=== PATIENT | female | born 1960 ===

== ENCOUNTER 2017-08-28 02:00 | Inpatient (IN) | payer OTHER ==
--- NOTE | 2017-08-17 15:08 | HISTORY AND PHYSICAL ---
DATE OF ADMISSION: August 28, 2017 IDENTIFICATION/CHIEF COMPLAINT Michaela is a 56-year-old woman with the chief complaint of right knee pain. HISTORY OF PRESENT ILLNESS Patient has a long-standing history of knee arthritis, progressively painful and debilitating, and refractory to conservative care. Surgery is indicated to relieve symptoms after the failure of nonoperative measures. PAST MEDICAL HISTORY Remote history of pneumonia in 2009. PAST SURGICAL HISTORY Appendectomy. ALLERGIES She has no known drug allergies. CURRENT MEDICATIONS She takes only vitamins. SOCIAL HISTORY Negative for tobacco and alcohol use. FAMILY HISTORY Notable for a mother who from a blood clot. REVIEW OF SYSTEMS Notable for amyloidosis. PHYSICAL EXAMINATION GENERAL: This is a healthy female. She appears her stated age. HEENT: Normocephalic, atraumatic. NECK: Supple. LUNGS: Clear. HEART: Regular. ABDOMEN: Soft. ORTHOPEDIC EXAM: The right knee has an effusion present. She has crepitus noted. Gross stability is good. Ligament exam is normal. She is stiff at the end range. Skin is intact. Neurovascular function is intact. Calves nontender. IMAGING Radiographs demonstrated advanced DJD. ASSESSMENT Right knee degenerative joint disease refractory to conservative care. PLAN Per patient request we are going to proceed with total knee replacement. The nature of the procedure, risks, benefits, the anticipated rehab course were reviewed. The risks include, but are not limited to , major medical or anesthetic complication, infection, neurovascular injury, blood transfusion, stiffness, scarring, fracture, tendon rupture, instability, implant loosening, migration or failure, persistent or recurrent pain, need for additional surgery and other unforeseen. She understands and wishes to proceed. A signed permit was placed in the chart. No guarantees are given or implied. RUTH
[2017-08-27 14:29] LABS: INR 0.98
[~2017-08-28] VITALS: Ht 160 cm; Wt 98.9 kg
[2017-08-28] VITALS (14 sets, daily range): BP systolic 89–131; BP diastolic 48–79
[~2017-08-28 02:00] MED LIST: IBUP200C74 PO; MULT-989 PO; RUTI1TAB3 PO
[2017-08-28] MEDS ORDERED: METOCLOPRAMIDE 10 MG/2 ML SDV ONE (07:59)
[2017-08-28] MEDS ORDERED: PROPOFOL EMUL(*) 10MG/ML 20 ML 20 ML ONE (07:59)
[2017-08-28] MEDS ORDERED: ONDANSETRON 4 MG/2 ML VIAL ONE (07:59)
[2017-08-28] MEDS ORDERED: LIDOCAINE MPF 1% 5 ML VIAL ONE (07:59)
[2017-08-28] MEDS ORDERED: PREGABALIN 150 MG CAPSULE PO ONE (08:00)
[2017-08-28] MEDS ORDERED: cloNIDine EPIDUR INJ 100MCG/ML 40 MCG, ROPIVACAINE 0.5% 20 ML VIAL 25 ML, EPINEPHrine H... INJ ONE (08:00)
[2017-08-28] MEDS ORDERED: LIDOCAINE/SOD BICARB 8.4% SYR ID ONE (08:00)
[2017-08-28] MEDS ORDERED: DEXAMETHASONE SOD 4 MG/ML VIAL ONE (08:00)
[2017-08-28] MEDS ORDERED: TRANEXAMIC AC 1000 MG/10ML SDV 1,000 MG in DEXTROSE 5% 50 ML BAG 50 ML IV ONE (08:00)
[2017-08-28] MEDS ORDERED: FAMOTIDINE 20 MG TAB PO ONE (08:00)
[2017-08-28] MEDS ORDERED: ceFAZolin(*) 2GM/D5W 50ML 50 ML IVPB ONE (08:00)
[2017-08-28] MEDS ORDERED: CELECOXIB 200 MG CAP PO ONE (08:00)
[2017-08-28] MEDS ORDERED: MIDAZOLAM 2 MG/2 ML VIAL IVP PRN ×2 (08:00)
[2017-08-28] MEDS ORDERED: NORMOSOL R SOLN(*) 1000 ML BAG 1,000 ML IV PRN ×2 (08:00→11:25)
[2017-08-28] MEDS ORDERED: ACETAMINOPHEN 500 MG TAB PO ONE (08:00)
[2017-08-28] MEDS ORDERED: fentaNYL CITR 100 MCG/2 ML AMP ONE (08:40)
[2017-08-28] MEDS ORDERED: ePHEDrine 25 MG/5 ML DISP.SYR IVP ONE (09:02)
[2017-08-28] MEDS ORDERED: NS(*) 0.9% 250 ML BAG 250 ML ONE (09:26)
[2017-08-28] MEDS ORDERED: PHENYLEPHRINE 10 MG/1 ML VIAL ONE (09:26)
[2017-08-28] MEDS ORDERED: GLYCOPYRROLATE 0.2MG/ML 1 ML INJ ONE (09:31)
[2017-08-28] MEDS ORDERED: LACTATED RINGER 3000 ML BAG IR ONE (10:29)
[2017-08-28] MEDS ORDERED: ZOLPIDEM TARTRATE 5 MG TAB PO PRN (11:25)
[2017-08-28] MEDS ORDERED: DIAZEPAM 5 MG TAB PO PRN (11:25)
[2017-08-28] MEDS ORDERED: BISACODYL 10 MG SUPP PR PRN (11:25)
[2017-08-28] MEDS ORDERED: BENZOCAINE/MENTHOL 1 EACH LOZG PO PRN (11:25)
[2017-08-28] MEDS ORDERED: diphenhydrAMINE 25 MG CAP PO PRN (11:25)
[2017-08-28] MEDS ORDERED: ACETAMINOPHEN 325 MG TAB PO PRN (11:25)
[2017-08-28] MEDS ORDERED: FLUSH 10 ML SYR IVP PRN (11:25)
[2017-08-28] MEDS ORDERED: MAGNESIUM HYDROXIDE* 30ML UDCP PO PRN (11:25)
[2017-08-28] MEDS ORDERED: PROMETHAZINE 25 MG/ML 1 ML AMP IVP PRN (11:25)
[2017-08-28] MEDS ORDERED: diphenhydrAMINE 50 MG/ML VIAL IVP PRN (11:25)
--- NOTE | 2017-08-28 12:30 | RADIOLOGY IMAGING REPORT ---
FACILITY: [facility] PATIENT NAME: Michaela Farley : 1960 MR: [id number] V: [id number] EXAM DATE: ORDERING PHYSICIAN: TODD TURPIN TECHNOLOGIST: Location: [facility] Patient: Michaela Farley : 1960 Visit/Account:[id number] Date of Sevice: 08/28/2017 KNEE LIMITED RIGHT COMPARISONS: None. ADDITIONAL PERTINENT HISTORY: Status post total knee arthroplasty. FINDINGS: Osseous structures: Patient status post right knee arthroplasty. No bony fractures. Joint spaces: Air within the suprapatellar joint space. Components of the arthroplasty in good positi on. Surrounding soft tissues: Subcutaneous emphysema about the right knee. IMPRESSION: 1. Patient status post total right knee arthroplasty. 2. No acute appearing bony abnormalities. Report Dictated By: JuanF Wren MD at 08/28/2017 12:22 PM Report E-Signed By: Juan F Wren MD at 08/28/2017 12:25 PM WSN:[id number]
--- NOTE | 2017-08-28 14:08 | Hospitalist Consultation ---
History of Present Illness Requesting Physician Dr. Low Reason for Consult Medical Management Chief Complaint s/p right total knee replacement History of Present Illness She was admitted s/p right total knee replacement. It was reported the surgery went well and without complication. History Problems: (1) Amyloidosis Status: Chronic Home Meds Reported Medications Ibuprofen (ADVIL) 200 Mg Capsule, 2 CAP PO HS, CAPSULE 08/20/17 Rutin/Hesp/Bioflav/C/Herb#196 (BIOFLEX TABLET) 1 Each Tablet, 1 TAB PO DAILY 08/20/17 Multivitamins-Min/Fa/Ginkgo (ONE DAILY FOR WOMEN 50+ ADV TB) 1 Each Tablet, 1 TAB PO DAILY 08/20/17 Allergies: Coded Allergies: No Known Drug Allergies (Unverified , 08/20/17) Patient History: DVT MOTHER, FH: [place] (myocardial infarction) FATHER, Hx Smoking: No Smoking Status: Never Smoker Caffeine Intake: Tea Caffeine/Cups Per Day: 2 GLASSES Hx Alcohol Use: No Hx Substance Use Disorder: No Social Drug Use: Never History of IV Drug Use: No Review of Systems All Systems Reviewed/Normal: Yes, Except as Noted Exam Vital Signs Vital Signs Date Time Temp Pulse Resp B/P (MAP) Pulse Ox O2 Delivery O2 Flow Rate FiO2 08/28/17 12:30 57 20 95 08/28/17 12:30 97.5 118/59 (78) Nasal Cannula 2.0 General Appearance: Alert, Awake, No Acute Distress, Afebrile Neuro: No Gross deficits Cardiovascular: Regular Rate and Rhythm Respiratory: No Respiratory Distress, Clear to Auscultation GI: Abd Soft and Non-Tender Psych: Alert & Oriented X3, Appropriate Mood & Affect Assessment and Plan Problems: (1) Status post total right knee replacement Status: Acute Assessment & Plan: Followed by Dr. Low. She will be placed on Xarelto for DVT prophylaxis. (2) Amyloidosis Status: Chronic Assessment & Plan: Followed by Neurology in [place], [place]. She does not require any treatment at this time. Venous Thromboembolism Antithrombotics Is Pt On Any Antithrombotics?: Yes RIA LITTLEJOHN [employer] August 28, 2017 14:07
[2017-08-28] MEDS: APAP/HYDROCODONE 325/7.5 TAB PO PRN ×2 (14:15→20:46)
[2017-08-28] MEDS: CEFAZOLIN PREM 1 GM/D5W 50 ML 50 ML IVPB SCH (16:19)
[2017-08-28] MEDS: CELECOXIB 200 MG CAP PO SCH (16:19)
--- NOTE | 2017-08-28 21:36 | OPERATIVE REPORT 1 ---
EVENT DATE: August 28, 2017 SURGEON: Tariq Low MD ANESTHESIOLOGIST: Moris Morley MD ANESTHESIA: General plus spinal. PAROLE BOARD MEMBER: LIZ Andrade PREOPERATIVE DIAGNOSIS Right knee degenerative joint disease. POSTOPERATIVE DIAGNOSIS Right knee degenerative joint disease. PROCEDURE PERFORMED Right total knee arthroplasty. ESTIMATED BLOOD LOSS Minimal. DRAINS None. SPECIMENS None. COMPLICATIONS None apparent. IMPLANTS USED Driscoll Triathlon knee system with a 4 right PS femur, 4 standard tibial baseplate, 33 mm universal symmetric patellar button, and 11 mm PS tibial tray liner. Polyethylene is X3. TOURNIQUET TIME 64 minutes INDICATIONS Michaela has intractable pain related to end-stage knee arthritis. Surgery is indicated to relieve symptoms after failure of nonoperative measures. DESCRIPTION OF PROCEDURE Patient was taken to the operating room and placed supine on the operating table. General anesthesia was induced after a spinal block was placed by the anesthesiologist. Right lower extremity was prepped and draped in the usual sterile fashion for knee arthroplasty. Limb was exsanguinated with an Esmarch bandage. Tourniquet inflated to 300 mmHg. Midline incision made, carried down through the skin and subcutaneous tissue to the extensor mechanism. Medial parapatellar arthrotomy was performed. Patella was everted. Knee was brought into the flexed position. Fat pad, anterior horns of the menisci, and the cruciate ligaments are debrided. Subperiosteal medial released is performed to start the balance the knee in a titrated fashion. A step drill is used to enter the distal femur. A 10-inch long alignment guide is used to engage the isthmus, cut set for 6 degrees of valgus relative to the anatomic axis. The 10 mm resection block is applied, pinned, and cuts made with an oscillating saw. AP sizing guide is applied. Size 4 is optimal. Four-in-one cutting block is applied. Anterior, posterior, posterior chamfer, and anterior chamfer cuts are made respectively. PS block is applied and centered. Medial and lateral bone is removed from the box. Trial femur has nice fit. Attention is turned to tibial preparation. The extramedullary guide is applied, positioned for varus, valgus, posterior slope, and rotation. This is set to resect 9 mm from the relatively intact lateral tibial plateau. The block is pinned. Extramedullary alignment check is made. Cuts made with an oscillating saw. After osteophyte removal, no further releases are required to balance the knee. Gaps are balanced and rectangular. The 4 baseplate provides optimum bony coverage without soft tissue overhang. This is inserted along with the trial liner and the trial femur. Knee is brought to extension. Patella is taken from the starting thickness of 22 mm to a residual of 14 with a patellar clamp and oscillating saw. The 33 provides optimal coverage. Lug holes are drilled. Patella tracks nicely with the no-touch technique. Final tibial preparation consists of assuring appropriate rotational and translational positioning of the component. The boss is reamed. Fin is punched. Surfaces are lavaged. Bone block is placed in the terminal canal. Mixed methacrylate is made and components cemented in a single stage. Once the cement is fully polymerized, tourniquet is deflated. Hemostasis is assured. The 11 PS tibial tray liner fills up the gap ideally, allowing the knee to drop to full extension without hyperextension, providing optimal soft tissue tension and stability. The 11 PS liner is locked into the baseplate. Surfaces are lavaged. Hemostasis is assured. Arthrotomy is closed in flexion with #2 Ethibond, subcutaneous tissue with 3-0 Vicryl, skin with surgical david. Sterile dressing applied. Patient awakened from anesthesia and taken to the recovery room in stable condition having tolerated the procedure well. Plan is for standard TKA rehab protocol. [facility]
[2017-08-29] VITALS (17 sets, daily range): BP systolic 62–129; BP diastolic 39–73; Ht 160 cm; Wt 98.9 kg
[2017-08-29] MEDS: APAP/HYDROCODONE 325/7.5 TAB PO PRN ×4 (01:46→21:27)
[2017-08-29] MEDS: CEFAZOLIN PREM 1 GM/D5W 50 ML 50 ML IVPB SCH ×2 (01:46→08:11)
[2017-08-29] MEDS: CELECOXIB 200 MG CAP PO SCH ×2 (08:11→17:45)
[2017-08-29] MEDS: RIVAROXABAN 10 MG TAB PO SCH (08:11)
[2017-08-29] MEDS ORDERED: NS(*) 0.9% 1000 ML BAG 1,000 ML IV ONE (09:25)
--- NOTE | 2017-08-29 11:15 | Hospitalist Progress Note ---
Subjective Progress Notes Subjective She has low blood pressure this morning. She was noted to be dizzy upon standing this morning. Patient Complains of: Neurological: Dizziness (upon standing) Cardiovascular: No: Chest Pain Respiratory: No: Shortness of Breath Physical Exam Vital Signs Date Time Temp Pulse Resp B/P (MAP) Pulse Ox O2 Delivery O2 Flow Rate FiO2 08/29/17 10:45 97.9 83 93/53 (66) 96 Nasal Cannula 3.0 08/29/17 06:59 16 Intake and Output 08/30/17 01:00 Intake Total 295 ml Balance 295 ml Intake Oral 240 ml IV Total 55 ml General Appearance: Alert, Awake, No Acute Distress, Afebrile Neuro: No Gross deficits Cardiovascular: Regular Rate and Rhythm Respiratory: No Respiratory Distress, Clear to Auscultation Extremities: Perfused, No Edema Psych: Alert & Oriented X3, Appropriate Mood & Affect Assessment and Plan Problems: (1) Status post total right knee replacement Status: Acute Assessment & Plan: Followed by Dr. Low. She will be placed on Xarelto for DVT prophylaxis. (2) Amyloidosis Status: Chronic Assessment & Plan: Followed by Neurology in [place], [place]. She does not require any treatment at this time. (3) Hypotension Status: Acute Assessment & Plan: She will receive IV bolus of Normal Saline. We will continue to monitor her blood pressure. Exam Sepsis Risk: No Definite Risk RIA LITTLEJOHN [employer]ING MECH[employer]IC August 29, 2017 11:15
[2017-08-29 11:40] LABS: PLATELET COUNT, AUTOMATED 176 K/uL (150-450)
[2017-08-30 05:09] VITALS: BP 107/56
[2017-08-30 07:15] VITALS: BP 118/57
[2017-08-30] MEDS: RIVAROXABAN 10 MG TAB PO SCH (08:19)
[2017-08-30] MEDS: CELECOXIB 200 MG CAP PO SCH ×2 (08:19→17:33)
--- NOTE | 2017-08-30 10:17 | Hospitalist Progress Note ---
Subjective Progress Notes Subjective She reports she feels much better today. She denies any dizziness. Patient Complains of: Neurological: No: Dizziness Cardiovascular: No: Chest Pain Respiratory: No: Shortness of Breath Physical Exam Vital Signs Date Time Temp Pulse Resp B/P (MAP) Pulse Ox O2 Delivery O2 Flow Rate FiO2 08/30/17 07:15 98.4 90 16 118/57 (77) 91 Room Air 08/30/17 05:09 1.0 Intake and Output 08/31/17 01:00 Intake Total 500 ml Balance 500 ml Intake Oral 500 ml # Voids 3 General Appearance: Alert, Awake, No Acute Distress, Afebrile Neuro: No Gross deficits Cardiovascular: Regular Rate and Rhythm Respiratory: No Respiratory Distress, Clear to Auscultation GI: Soft and Non-Tender Psych: Alert & Oriented X3, Appropriate Mood & Affect Result Diagram: 08/29/17 1130 08/29/17 1130 Assessment and Plan Problems: (1) Status post total right knee replacement Status: Acute Assessment & Plan: Followed by Dr. Low. She will be placed on Xarelto for DVT prophylaxis. (2) Amyloidosis Status: Chronic Assessment & Plan: Followed by Neurology in [place], [place]. She does not require any treatment at this time. (3) Hypotension Status: Resolved Assessment & Plan: She did receive IV bolus of Normal Saline. We will continue to monitor her blood pressure. Exam Sepsis Risk: No Definite Risk RIA LITTLEJOHNP August 30, 2017 10:17
[2017-08-30 11:42] VITALS: BP 122/60
[2017-08-30] MEDS: APAP/HYDROCODONE 325/7.5 TAB PO PRN ×2 (11:45→20:02)
[2017-08-30 15:10] VITALS: BP 116/59
[2017-08-30 19:56] VITALS: BP 122/64
[2017-08-31 03:51] VITALS: BP 132/68
[2017-08-31 07:26] VITALS: BP 144/89
[2017-08-31 07:59] VITALS: BP 125/70
[2017-08-31] MEDS: RIVAROXABAN 10 MG TAB PO SCH (08:33)
[2017-08-31] MEDS: CELECOXIB 200 MG CAP PO SCH (08:33)
[2017-08-31] MEDS ORDERED: HYDR-4308 PO (08:40)
[2017-08-31] MEDS ORDERED: RIVA10TA PO (09:23)
--- NOTE | 2017-08-31 10:46 | Hospitalist Progress Note ---
Subjective Progress Notes Subjective She has no concerns this morning. She had no acute events overnight. Patient Complains of: Cardiovascular: No: Chest Pain Respiratory: No: Shortness of Breath Physical Exam Vital Signs Date Time Temp Pulse Resp B/P (MAP) Pulse Ox O2 Delivery O2 Flow Rate FiO2 08/31/17 07:59 98.0 88 16 125/70 (88) 90 Room Air 08/30/17 20:01 1.0 Intake and Output 09/01/17 01:00 Intake Total 480 ml Balance 480 ml Intake Oral 480 ml # Voids 2 General Appearance: Alert, Awake, No Acute Distress, Afebrile Neuro: No Gross deficits Cardiovascular: Regular Rate and Rhythm Respiratory: No Respiratory Distress, Clear to Auscultation GI: Soft and Non-Tender Psych: Alert & Oriented X3, Appropriate Mood & Affect Result Diagram: 08/29/17 1130 08/29/17 1130 Assessment and Plan Problems: (1) Status post total right knee replacement Status: Acute Assessment & Plan: Followed by Dr. Low. She will continue Xarelto for DVT prophylaxis. She has the prescription already filled at home. (2) Amyloidosis Status: Chronic Assessment & Plan: Followed by Neurology in [place], [place]. She does not require any treatment at this time. (3) Hypotension Status: Resolved Assessment & Plan: She did receive IV bolus of Normal Saline. Resolved. Exam Sepsis Risk: No Definite Risk RIA LITTLEJOHN ELECTRICAL INSTALLER August 31, 2017 10:46
[2017-08-31] MEDS: APAP/HYDROCODONE 325/7.5 TAB PO PRN (10:56)
== END 2017-08-31 11:05 | disposition home or self-care (01) | DRG 470 ==
LOC: OR 02:00 → MED 12:30
PROVIDERS: ADMIT Orthopaedic Surgery; ATTEND Orthopaedic Surgery
PROC: 0SRC0J9 Replacement of Right Knee Joint with Synthetic Substitute, Cemented, Open Approach (ICD-10-PCS; principal; 2017-08-28 08:51)
DX: M17.11 Unilateral primary osteoarthritis, right knee (principal); E85.9 Amyloidosis, unspecified; I95.9 Hypotension, unspecified; E66.01 Morbid (severe) obesity due to excess calories; G47.33 Obstructive sleep apnea (adult) (pediatric); Z68.38 Body mass index [BMI] 38.0-38.9, adult
CPT/HCPCS: 36415; 82310; 82374; 82435; 82565; 82947; 84132; 84295; 84520; 85025; 85610; 86850; 86900; 86901; 97161; C1713; C1776; J0171; J0690; J0735; J1100; J1885; J2001; J2250; J2370; J2405; J2704; J2765; J2795; J3010; J3490; J7030; J7050; J7060